=== PATIENT | female | born 1955 | race Caucasian/White ===

== ENCOUNTER 2021-03-14 17:38 | Observation (INO) | payer OTHER ==
[~2021-03-14] VITALS: Ht 170.2 cm; Wt 114.3 kg
[2021-03-14 18:26] LABS: BASOPHILS ABSOLUTE AUTO 0.03 K/mm3 (0.00-0.23); BASOPHILS PERCENT AUTO 0 % (0-2); EOSINOPHILS ABSOLUTE AUTO 0.03 K/mm3 (0.00-0.68); EOSINOPHILS PERCENT AUTO 0 % (0-6); Hematocrit 41.3 % (33.0-51.0); Hemoglobin 13.3 g/dL (11.5-16.0); IMMATURE GRAN ABSOLUTE AUTO 0.04 K/mm3 (0.00-0.10); IMMATURE GRAN PERCENT AUTO 0 % (0-1); LYMPHOCYTES ABSOLUTE AUTO 2.88 K/mm3 (0.84-5.20); LYMPHOCYTES PERCENT AUTO 24 % (21-46); MONOCYTES ABSOLUTE AUTO 1.08 K/mm3 (0.16-1.47); MONOCYTES PERCENT AUTO 9 % (4-13); Mean Corpuscular HGB Conc 32.2 g/dL (31.5-36.5); Mean Corpuscular Volume 90 fL (80-100); Mean Platelet Volume 8.4 fL (9.1-12.4); NEUTROPHILS PERCENT AUTO 66 % (41-73); Platelet Count 209 K/mm3 (150-400); RDW Coefficient Variation 13.3 % (11.7-14.2); RDW Standard Deviation 43.4 fL (35.1-46.3); Red Blood Cell Count 4.58 M/mm3 (3.80-5.20); White Blood Cell Count 11.96 K/mm3 (4.00-11.30)
[2021-03-14 18:58] LABS: Alanine Aminotransfer (ALT/SGP 29 U/L (12-78); Albumin, Blood 3.7 g/dL (3.4-5.0); Alk Phos 97 U/L (50-136); Anion Gap 8 mmol/L (6-16); Aspartate Aminotrans (AST/SGOT 16 U/L (12-37); Bilirubin, Total 0.3 mg/dL (0.1-1.0); Blood Urea Nitrogen 20 mg/dL (8-24); Bun/Creatinine Ratio 22.1 (12.0-20.0); CO2, Blood 25 mmol/L (21-32); Calcium, Blood 8.8 mg/dL (8.5-10.1); Chloride, Blood 105 mmol/L (98-108); Globulin, Blood 3.8 g/dL (2.2-4.0); Glomerular Filtration Rate >60 (60-); Glucose, Blood 236 mg/dL (70-99); Potassium, Blood 4.4 mmol/L (3.5-5.5); Sodium, Blood 138 mmol/L (136-145); Total Protein, Blood 7.5 g/dL (6.4-8.2)
[2021-03-14 20:17] LABS: Source, Urine Clean Catch
[2021-03-14 20:21] LABS: Bilirubin, Urine Neg (Neg); Blood, Urine 1+ (Neg); Glucose Qualitative, Urine 3+ (Neg); Ketones, Urine 1+ (Neg); Leukocyte Esterase, Urine Neg (Neg); Nitrite, Urine Neg (Neg); Protein, Urine 2+ (Neg); Specific Gravity, Urine 1.025 (1.003-1.022); Urobilinogen, Urine NORM (Normal)
[2021-03-14 20:26] LABS: Appearance, Urine Clear (Clear); Color, Urine Yellow (P-Yellow)
[2021-03-14 20:27] LABS: Bacteria Few /hpf; Mucus Light (0-Heavy); Red Blood Cells, Urine 0-2 /hpf (0-2); Squamous Epithelial Cells Few /hpf (Few); White Blood Cells, Urine 0-2 /hpf (0-5)
[2021-03-14] MEDS ORDERED: METOPROLOL SUCC25 MG PO (21:09)
[2021-03-14] MEDS ORDERED: METFORMIN HCL500 M3 PO (21:09)
[2021-03-14] MEDS ORDERED: LOSARTAN POTAS100 M1 PO (21:09)
--- NOTE | 2021-03-15 04:07 | NUR ---
SHIFT SUMMARY NEW ADMIT THIS SHIFT. AAOX4. NPO. PT REPORTING DISCOMFORT AT TOLERABLE LEVEL T/O NIGHT, NO NAUSEA/EMESIS. INDEPENDENT IN ROOM. IVF + ABX PER ORDERS. PT ORIENTED TO ROOM + CALL LIGHT USE. RESTING WELL THIS AM WITH CALL LIGHT IN REACH.
--- NOTE | 2021-03-15 10:19 | NUR ---
pt to surgery at this time. 1200 abx sent with preop nurse
--- NOTE | 2021-03-15 10:34 | NUR ---
PT TRANSFERED TO [facility]. History, Chart, Medications and Allergies reviewed before start of procedure. Lungs clear T/O to Auscultation. Patient confirms NPO status and agrees with scheduled surgery. Pre-Op teaching done. Pt verbalizes understanding.
--- NOTE | 2021-03-15 14:14 | NUR ---
PT BACK FROM SURGERY AT THSI TIME. SLIDE FROM GURNEY TO BED WITH SLIDE SHEET. PT ORIENTED X4 BUT GROGGY, SHE REPORTS FEELING BETTER OVERALL, SHE JUST WANTS TO SLEEP AT THIS TIME. DRESSING CDI AT THIS TIME. PATIENT IS ON ROOM AIR.
--- NOTE | 2021-03-15 18:42 | NUR ---
SHIFT SUMMARY NO ACUTE CHANGES SINCE ARRIVAL FROM SURGERY. PT AA0X4, SHE HAS BEEN UP TO BSC, AMBULATING WELL AND ON ROOM AIR. DRESSINGS CDI. MEDICATED PER EMAR. DENIES NAUSEA. IV FLUIDS INFUSING. PLAN TO ENCOURAGE MORE AMBULATION.
--- NOTE | 2021-03-16 06:22 | NUR ---
SHIFT SUMMARY: DON IS A&OX4. VSS, NO ACUTE EVENTS OVERNIGHT. SHE IS TOLERATING A CLEAR LIQUID DIET WELL, ABDOMINAL INCISIONS C/D&I, INDEPENDENT IN THE ROOM. SHE REPORTS ADEQUATE PAIN CONTROL WITH NORCO, HEAT AND REPOSITIONING. NO DIFFICULTIES URINATING, USES THE CALL LIGHT APPROPRIATELY. SHE IS LYING IN BED WITH THE CALL LIGHT IN REACH. WILL REPORT TO DAY SHIFT RN.
[2021-03-16] MEDS ORDERED: HYDR1TAB94 PO (08:24)
--- NOTE | 2021-03-16 09:13 | NUR ---
discharging DC'D IV, CATHETER INTACT. REVIEWED DC PAPERWORK; PT VERBALIZED UNDERSTANDING. PT GETTING DRESSED AND CALLING FOR RIDE. WANTS TO TAKE AM MEDS AT HOME. CALL LIGHT IN REACH.
--- NOTE | 2021-03-16 10:45 | NUR ---
discharged PT LEFT UNIT IN WC W/POSSESSIONS AND DC PAPERWORK IN HAND TO RIDE WAITING OUTSIDE.
== END 2021-03-16 10:43 | disposition home or self-care (01) ==
LOC: ER 17:38 → MEDS 17:39 → SURS 17:39
PROVIDERS: Physician Assistant; ADMIT Surgery
PROC: 0DTJ4ZZ Resection of Appendix, Percutaneous Endoscopic Approach (ICD-10-PCS; principal; 2021-03-15 10:45)
DX: K35.80 Unspecified acute appendicitis (principal); K76.0 Fatty (change of) liver, not elsewhere classified; I10 Essential (primary) hypertension; E11.9 Type 2 diabetes mellitus without complications; Z88.1 Allergy status to other antibiotic agents
CPT/HCPCS: 74177; 80053; 81001; 82947; 83605; 83690; 85025; 88304; 93005; 93010; 96365-59; 96366; 96375; 96376; 99285-25; A9270; G0378; J1100; J2250; J2405; J2543; J2704; J3010; J7030; J7120; Q9967

== ENCOUNTER → 2022-09-10 | Outpatient (CLI) | payer OTHER ==
[~2022-09-10] MED LIST: HYDR1TAB94 PO; LOSARTAN POTAS100 M1 PO; METFORMIN HCL500 M3 PO; METOPROLOL SUCC25 MG PO
== END ==
LOC: LAB SHORT 12:20 → LAB 12:20
DX: R30.0 Dysuria (principal)
CPT/HCPCS: 87086

== ENCOUNTER 2024-05-27 21:00 | Emergency (ER) | payer OTHER ==
[~2024-05-27] VITALS: Ht 170.2 cm; Wt 106.6 kg
[2024-05-27] MEDS ORDERED: Diphth,Pertuss(Acell),Tet Vac 0.5 ML VIAL IM ONE (21:10)
[2024-05-27] MEDS ORDERED: Amoxicillin/Clavulanate K 875 MG Tab PO ONE (23:15)
[2024-05-27] MEDS ORDERED: AMOCLA875 PO (23:17)
[2024-05-27 23:29] VITALS: BP 147/78
== END 2024-05-27 23:29 | disposition home or self-care (01) ==
LOC: ER 21:00
DX: S61.251A Open bite of left index finger without damage to nail, initial encounter (principal); S61.452A Open bite of left hand, initial encounter; S51.852A Open bite of left forearm, initial encounter; W54.0XXA Bitten by dog, initial encounter; Z23 Encounter for immunization; Z88.1 Allergy status to other antibiotic agents; Z79.899 Other long term (current) drug therapy; Z79.84 Long term (current) use of oral hypoglycemic drugs
CPT/HCPCS: 12002; 73130; 90471; 90715; 99283-25; A9270

== ENCOUNTER → 2024-12-01 | Outpatient (CLI) | payer OTHER ==
[~2024-12-01] MED LIST changes: +AMOCLA875 PO
[2024-12-01 15:56] LABS: Microalb/Creat Ratio UR, Rand 6.374 mg/g (0.000-30.000); Microalbumin, Random Urine 10.9 mg/L (0.000-20.000)
== END | disposition home or self-care (01) ==
LOC: LAB 10:24 → LAB SHORT 10:24
PROVIDERS: Internal Medicine
DX: I10 Essential (primary) hypertension (principal)
CPT/HCPCS: 82043; 82570